=== PATIENT | male | born 1965 | race Caucasian/White ===

== ENCOUNTER 2018-07-28 08:38 | Outpatient (CLI) | payer BC ==
--- NOTE | 2018-07-28 11:39 | CT ---
CT ABDOMEN WITH AND WITHOUT IV CONTRAST: HISTORY: Liver mass. COMPARISON: 06/11/2017 noncontrast study and multiple exams back to 09/21/2007. FINDINGS: Lung bases are clear. Multiple nonobstructing bilateral renal calculi are similar in appearance to t he prior study. Lower abdominal aorta contains calcifications and is dilated up to 3.4 cm. Within the lateral segment left liver lobe, a subtle irregular-shaped low-density mass is 2.1 cm grea test diameter. It is unchanged in appearance on the noncontrast study from the 2017 exam. There is no significant enhancement after contrast administration out to 2 minutes. No other liver masses. N o enlarged lymph nodes or free fluid within the abdomen. The pelvis was not imaged. IMPRESSION: 1. One year stability of the subtle low-density nonenhancing mass within the lateral segment left li jane lobe. As a conservative measure, please consider followup MRI liver, employing a hemangioma prot ocol, in 6-12 months to continue to evaluate for stability. 2. Fusiform lower abdominal aortic aneurysm, 3.4 cm, stable. 3. Multiple nonobstructing bilateral renal calculi, stable. 4. Atherosclerosis. POS: [facility]
== END 2018-07-28 08:39 | disposition home or self-care (01) ==
LOC: SCSCT 08:38
PROVIDERS: ATTEND Family Medicine
DX: R16.0 Hepatomegaly, not elsewhere classified (principal); I71.4 Abdominal aortic aneurysm, without rupture; N20.0 Calculus of kidney; I70.0 Atherosclerosis of aorta
CPT/HCPCS: 74170

== ENCOUNTER 2022-08-18 15:11 | Inpatient (IN) | payer BC, OTHER ==
[2022-08-18 15:40] LABS: #Basophils 0.1 thou/uL (0.0-0.2); #Lymphocytes 0.9 thou/uL (1.20-3.40); #Monocytes 0.8 thou/uL (0.11-0.59); #Neutrophils 8.7 thou/uL (1.40-6.50); %Basophils 0.8 % (0.0-1.0); %Eosinophils 0.3 % (0.0-10.0); %Lymphocytes 8.8 % (21.0-51.0); %Monocytes 7.7 % (0.0-10.0); %Neutrophils 82.4 % (42.0-75.0); Hemoglobin 17.4 g/dL (14.0-18.0); Mean Corpuscular HGB CONC 32.9 g/dL (32.0-36.0); Mean Corpuscular Hemoglobin 29.5 pg (27.0-31.0); Mean Corpuscular Volume 89.6 fl (78.0-98.0); Mean Platelet Volume 9.6 fL (7.4-10.4); Platelet Count 182 10x3/uL (130-400); RBC Distribution Width 12.9 % (11.5-14.5); White Blood Cell (WBC) Count 10.5 10x3/uL (4.8-10.8)
[2022-08-18 16:17] LABS: ALT (SGPT) 20 U/L (8-55); AST (SGOT) 22 U/L (5-34); Albumin 4.2 g/dL (3.5-5.0); Alkaline Phosphatase 96 U/L (40-110); Anion Gap 17 mmol/L (10-20); BUN (Urea Nitrogen) 17 mg/dL (8.4-25.7); Bilirubin, Total 0.6 mg/dL (0.2-1.2); Calc. Creatinine Clearance 0 mL/min (70-130); Calcium 9.8 mg/dL (7.8-10.44); Carbon Dioxide 22 mmol/L (22-29); Chloride 107 mmol/L (98-107); Estimated GFR 53; Glucose 114 mg/dL (70-105); Potassium 4.6 mmol/L (3.5-5.1); Protein, Total 8.2 g/dL (6.0-8.3); Sodium 141 mmol/L (136-145)
[2022-08-18 16:59] LABS: Bacteria/HPF None Seen HPF (None Seen); Bilirubin Negative (Negative); Blood, Urine 1+ (Negative); Clarity Clear (Clear); Glucose, Urine (Dipstick) Normal (Negative); Ketone, Urine Negative (Negative); Leukocyte Negative Leu/uL (Negative); Nitrite Negative (Negative); Protein, Urine (Dipstick) 10 mg/dL (Neg-Trace); Specific Gravity, Urine 1.022 (1.002-1.036); Squamous Epithelial None Seen HPF (0-3); Urobilinogen Normal mg/dL (Less than 2); pH, Urine 6.5 (5.0-9.0)
[2022-08-18] MEDS ORDERED: Ketorolac Tromethamine 30 MG/ML VIAL ONE (17:58)
[2022-08-18] MEDS ORDERED: Morphine 4 MG/ML VIAL ONE (17:58)
[2022-08-18] MEDS ORDERED: Ondansetron PF 4 MG/2 ML Vial ONE (18:04)
[2022-08-18 18:48] LABS: Lactic Acid 2.1 mmol/L (0.5-2.2)
[2022-08-18] MEDS: Lactated Ringer's 1,000 ML IV SCH (22:26)
[2022-08-18] MEDS ORDERED: Morphine 2 MG/ML VIAL ONE (22:42)
[2022-08-18] MEDS: Morphine 2 MG/ML VIAL SLOW IVP PRN (22:57)
[2022-08-18] MEDS: Atorvastatin Calcium 20 MG TAB PO SCH (22:59)
[2022-08-18] MEDS: Tamsulosin HCl 0.4 MG CAP PO SCH (22:59)
[2022-08-19] MEDS ORDERED: Acetaminophen 325 MG TAB ONE ×2 (02:02→06:52)
[2022-08-19] MEDS ORDERED: Ondansetron ODT 4 MG TAB ONE ×2 (02:02→06:52)
[2022-08-19] MEDS: Ondansetron ODT 4 MG TAB PO PRN ×2 (02:05→19:08)
[2022-08-19] MEDS: Acetaminophen 325 MG TAB PO PRN ×5 (02:05→22:00)
[2022-08-19 05:35] LABS: #Monocytes 0.9 thou/uL (0.11-0.59); #Neutrophils 6.5 thou/uL (1.40-6.50); %Basophils 0.3 % (0.0-1.0); %Eosinophils 0.5 % (0.0-10.0); %Lymphocytes 12.3 % (21.0-51.0); %Neutrophils 76.9 % (42.0-75.0); Hemoglobin 15.9 g/dL (14.0-18.0); Mean Corpuscular HGB CONC 32.9 g/dL (32.0-36.0); Mean Corpuscular Hemoglobin 29.5 pg (27.0-31.0); Mean Corpuscular Volume 89.4 fl (78.0-98.0); Mean Platelet Volume 9.6 fL (7.4-10.4); Platelet Count 143 10x3/uL (130-400); RBC Distribution Width 12.8 % (11.5-14.5); Red Blood Cell (RBC) Count 5.38 mill/uL (4.70-6.10); White Blood Cell (WBC) Count 8.5 10x3/uL (4.8-10.8)
[2022-08-19] MEDS: Lactated Ringer's 1,000 ML IV SCH ×5 (05:45→22:03)
[2022-08-19 05:58] LABS: Anion Gap 12 mmol/L (10-20); BUN (Urea Nitrogen) 19 mg/dL (8.4-25.7); Calc. Creatinine Clearance 0 mL/min (70-130); Calcium 9.1 mg/dL (7.8-10.44); Carbon Dioxide 26 mmol/L (22-29); Chloride 106 mmol/L (98-107); Estimated GFR 37; Glucose 112 mg/dL (70-105); Potassium 4.3 mmol/L (3.5-5.1); Sodium 140 mmol/L (136-145)
[2022-08-19] MEDS ORDERED: Pantoprazole 40 MG VIAL IVP SCH (07:15)
[2022-08-19] MEDS ORDERED: Pantoprazole 40 MG VIAL ONE (09:22)
[2022-08-19] MEDS: Losartan 25 MG TAB PO SCH (09:37)
[2022-08-19] MEDS: Allopurinol 100 MG TAB PO SCH (09:37)
[2022-08-19 14:22] VITALS: BMI 36.1
[2022-08-19] MEDS: Morphine 2 MG/ML VIAL SLOW IVP PRN (19:03)
[2022-08-19] MEDS: Tamsulosin HCl 0.4 MG CAP PO SCH (21:22)
[2022-08-19] MEDS: Atorvastatin Calcium 20 MG TAB PO SCH (21:22)
[2022-08-20] MEDS: Morphine 2 MG/ML VIAL SLOW IVP PRN (00:11)
[2022-08-20] MEDS ORDERED: Morphine 4 MG/ML VIAL SLOW IVP PRN (01:29)
[2022-08-20] MEDS ORDERED: Morphine 2 MG/ML VIAL SLOW IVP SCH (01:30)
[2022-08-20] MEDS: Acetaminophen 325 MG TAB PO PRN ×2 (01:45→08:50)
[2022-08-20] MEDS: Lactated Ringer's 1,000 ML IV SCH ×3 (05:05→21:05)
[2022-08-20 07:06] LABS: #Eosinphils 0.1 thou/uL (0.0-0.7); #Lymphocytes 0.9 thou/uL (1.20-3.40); #Monocytes 0.8 thou/uL (0.11-0.59); #Neutrophils 6.3 thou/uL (1.40-6.50); %Basophils 0.3 % (0.0-1.0); %Eosinophils 0.7 % (0.0-10.0); %Lymphocytes 11.1 % (21.0-51.0); %Monocytes 10.2 % (0.0-10.0); %Neutrophils 77.6 % (42.0-75.0); Hemoglobin 15.3 g/dL (14.0-18.0); Mean Corpuscular HGB CONC 32.6 g/dL (32.0-36.0); Mean Corpuscular Hemoglobin 29.3 pg (27.0-31.0); Mean Corpuscular Volume 89.9 fl (78.0-98.0); Mean Platelet Volume 9.5 fL (7.4-10.4); Platelet Count 138 10x3/uL (130-400); RBC Distribution Width 12.8 % (11.5-14.5); Red Blood Cell (RBC) Count 5.22 mill/uL (4.70-6.10); White Blood Cell (WBC) Count 8.1 10x3/uL (4.8-10.8)
[2022-08-20 07:28] LABS: Anion Gap 10 mmol/L (10-20); BUN (Urea Nitrogen) 19 mg/dL (8.4-25.7); Calc. Creatinine Clearance 64 mL/min (70-130); Calcium 8.8 mg/dL (7.8-10.44); Carbon Dioxide 26 mmol/L (22-29); Chloride 106 mmol/L (98-107); Estimated GFR 32; Glucose 97 mg/dL (70-105); Potassium 4.2 mmol/L (3.5-5.1); Sodium 138 mmol/L (136-145)
[2022-08-20] MEDS: Allopurinol 100 MG TAB PO SCH (08:51)
[2022-08-20] MEDS: Losartan 25 MG TAB PO SCH (08:51)
[2022-08-20] MEDS: Pantoprazole 40 MG VIAL IVP SCH ×2 (08:51→10:30)
[2022-08-20] MEDS ORDERED: FLU VACC QS2022-23(6MOS UP)/PF 60 MCG/0.5 ML SYRINGE IM ONE (09:00)
[2022-08-20] MEDS ORDERED: Dexmedetomidine 200 MCG/2 ML VIAL ONE (11:46)
[2022-08-20] MEDS ORDERED: Fentanyl 250 MCG/5 ML VIAL ONE (11:46)
[2022-08-20] MEDS ORDERED: cefTRIAXone\\ROCEPHIN 1 GM VIAL ONE (11:48)
[2022-08-20] MEDS ORDERED: Sodium Chloride 0.9% 100 ML ONE (11:48)
[2022-08-20] MEDS ORDERED: Rocuronium Bromide 10 MG/ML (10ML VIAL) ONE (11:53)
[2022-08-20] MEDS ORDERED: Dexamethasone 20 MG/5 ML VIAL ONE (11:53)
[2022-08-20] MEDS ORDERED: PHENYLEPHRINE-NS 100 MCG/ML 10 ML SYRINGE ONE (11:53)
[2022-08-20] MEDS ORDERED: Ondansetron PF 4 MG/2 ML Vial ONE (11:53)
[2022-08-20] MEDS ORDERED: PROPOFOL 200 MG/20 ML VIAL ONE (11:53)
[2022-08-20] MEDS ORDERED: cefTRIAXone\\ROCEPHIN 1 GM in Sodium Chloride 0.9% 100 ML IVPB SCH (12:30)
[2022-08-20] MEDS ORDERED: Iopamidol 15 ML ONE (13:05)
[2022-08-20] MEDS ORDERED: SUGAMMADEX SODIUM 200 MG/2 ML VIAL ONE (13:16)
[2022-08-20] MEDS ORDERED: Non-Formulary Medication 1 EACH PO PRN (13:23)
[2022-08-20] MEDS ORDERED: Ondansetron HCl/PF 4 MG/2 ML Vial IVP PRN (13:30)
[2022-08-20] MEDS ORDERED: Promethazine HCl 25 MG/ML VIAL IM/IV PRN (13:30)
[2022-08-20] MEDS ORDERED: Amlodipine 5 MG TAB PO SCH (15:45)
[2022-08-20] MEDS: Tamsulosin HCl 0.4 MG CAP PO SCH (21:05)
[2022-08-20] MEDS: Atorvastatin Calcium 20 MG TAB PO SCH (21:05)
[2022-08-21] MEDS: Acetaminophen 325 MG TAB PO PRN (02:12)
[2022-08-21] MEDS: Lactated Ringer's 1,000 ML IV SCH ×2 (02:55→04:17)
[2022-08-21 06:42] LABS: #Lymphocytes 0.8 thou/uL (1.20-3.40); #Monocytes 0.8 thou/uL (0.11-0.59); #Neutrophils 9.5 thou/uL (1.40-6.50); %Lymphocytes 7.5 % (21.0-51.0); %Monocytes 7.2 % (0.0-10.0); %Neutrophils 85.2 % (42.0-75.0); Hemoglobin 15.6 g/dL (14.0-18.0); Mean Corpuscular HGB CONC 33.1 g/dL (32.0-36.0); Mean Corpuscular Hemoglobin 29.6 pg (27.0-31.0); Mean Corpuscular Volume 89.4 fl (78.0-98.0); Platelet Count 163 10x3/uL (130-400); RBC Distribution Width 12.7 % (11.5-14.5); Red Blood Cell (RBC) Count 5.26 mill/uL (4.70-6.10); White Blood Cell (WBC) Count 11.2 10x3/uL (4.8-10.8)
[2022-08-21 06:57] LABS: Anion Gap 13 mmol/L (10-20); BUN (Urea Nitrogen) 20 mg/dL (8.4-25.7); Calc. Creatinine Clearance 92 mL/min (70-130); Calcium 9.2 mg/dL (7.8-10.44); Carbon Dioxide 22 mmol/L (22-29); Chloride 107 mmol/L (98-107); Estimated GFR 50; Glucose 116 mg/dL (70-105); Sodium 138 mmol/L (136-145)
[2022-08-21] MEDS: Allopurinol 100 MG TAB PO SCH (08:40)
[2022-08-21] MEDS: Losartan 25 MG TAB PO SCH (08:41)
[2022-08-21] MEDS ORDERED: Amlodipine 5 MG TAB PO SCH (09:00)
[2022-08-21] MEDS ORDERED: Amlodipine 10 MG TAB PO SCH (09:00)
[2022-08-21 11:33] VITALS: TEMP 97.8
[2022-08-21 11:43] VITALS: BP 158/84
[2022-08-25 13:15] LABS: CA Oxalate Monohydrate 100 % (.); Color Brown (.); Stone Weight 153 mg (.)
== END 2022-08-21 13:08 | disposition home or self-care (01) | DRG 661 ==
LOC: ERS 15:11 → ERHOLD 18:55 → T4-B 08-19 14:21
PROVIDERS: ADMIT Family Medicine; ATTEND Family Medicine
PROC: 0TC08ZZ Extirpation of Matter from Right Kidney, Via Natural or Artificial Opening Endoscopic (ICD-10-PCS; principal; 2022-08-20)
PROC: 0T768DZ Dilation of Right Ureter with Intraluminal Device, Via Natural or Artificial Opening Endoscopic (ICD-10-PCS; 2022-08-20)
PROC: BT1D1ZZ Fluoroscopy of Right Kidney, Ureter and Bladder using Low Osmolar Contrast (ICD-10-PCS; 2022-08-20)
DX: N13.2 Hydronephrosis with renal and ureteral calculous obstruction (principal); N17.8 Other acute kidney failure; I10 Essential (primary) hypertension; E78.5 Hyperlipidemia, unspecified; I71.40 Abdominal aortic aneurysm, without rupture, unspecified; M10.9 Gout, unspecified; Z20.822 Contact with and (suspected) exposure to COVID-19; Z79.899 Other long term (current) drug therapy; Z98.890 Other specified postprocedural states
CPT/HCPCS: 36415; 74176; 74420; 80048; 80053; 81003; 81015; 82365; 82570; 83605; 84300; 85025; 87086; 88300; 96374; 96375; C1713; C1769; C2617; C9113; J0696; J1100; J1885; J2270; J2272; J2405; J2704; J3010; J3490; J7120; Q0162; Q9967; U0003; U0005